=== PATIENT | female | born 1975 | race Caucasian/White ===

== ENCOUNTER 2023-05-14 12:43 | Emergency (ER) | payer OTHER ==
[2023-05-14] MEDS ORDERED: methylPREDNISolone Sodium Succinate 125 MG/2 ML SDV IM ONE (13:43)
[2023-05-14] MEDS ORDERED: Famotidine 20 MG Tab PO ONE (13:44)
[2023-05-14] MEDS ORDERED: hydrOXYzine HCl 25 MG Tab PO ONE (13:44)
== END 2023-05-14 14:23 | disposition home or self-care (01) ==
LOC: JD.ED 12:43
DX: L20.89 Other atopic dermatitis (principal)
CPT/HCPCS: 96372; 99282; A9270; J2930

== ENCOUNTER 2024-06-19 12:33 | Emergency (ER) | payer OTHER ==
[2024-06-19] MEDS ORDERED: Sodium Chloride 0.9% 10 ML Syringe FLUSH PRN (13:04)
[2024-06-19 13:43] LABS: BASOPHILS PERCENT AUTO 0.5 % (0.0-1.0); EOSINOPHILS ABSOLUTE AUTO 0.1 K/mm3 (0.0-0.4); EOSINOPHILS PERCENT AUTO 5.7 % (0.0-6.0); HEMOGLOBIN 13.1 gm/dl (12.0-16.0); IMMATURE GRAN ABSOLUTE AUTO 0.01 K/mm3 (0.00-0.05); IMMATURE GRAN PERCENT AUTO 0.5 % (0.0-0.4); LYMPHOCYTES ABSOLUTE AUTO 0.6 K/mm3 (1.0-4.8); LYMPHOCYTES PERCENT AUTO 27.8 % (24.0-44.0); MEAN CORPUSCULAR HEMOGLOBIN 31.3 pg (28.0-32.0); MEAN CORPUSCULAR HGB CONC 34.5 g/dl (32.0-36.0); MEAN CORPUSCULAR VOLUME 90.9 fl (83.0-99.0); MEAN PLATELET VOLUME 10.3 fl (9.4-12.3); MONOCYTES ABSOLUTE AUTO 0.3 K/mm3 (0.0-0.8); MONOCYTES PERCENT AUTO 12.3 % (0.0-8.0); NEUTROPHILS ABSOLUTE AUTO 1.1 K/mm3 (1.8-7.7); NEUTROPHILS PERCENT AUTO 53.2 % (41.0-71.0); PLATELET COUNT,PLT 58 K/mm3 (150-400); RED BLOOD CELL COUNT 4.18 M/mm3 (4.10-5.30)
[2024-06-19] MEDS: Sodium Chloride 0.9% 1,000 ML IV ONE ×2 (13:45→16:02)
[2024-06-19 13:46] LABS: WHITE BLOOD CELL COUNT,WBC 2.12 K/mm3 (3.9-11.3)
[2024-06-19 14:27] LABS: A/G RATIO 0.9 (1-2); ALBUMIN 3.1 g/dl (3.4-5.0); ANION GAP 14.1 (5-15); BILIRUBIN TOTAL 0.6 mg/dL (0.2-1.0); BUN/CREATININE RATIO 14.4 (14-18); CREATININE 0.9 mg/dL (0.55-1.02); EST CRCL DRUG DOSING (CG) 62.55 mL/min; MAGNESIUM 1.6 mg/dL (1.8-2.4); POTASSIUM,K 4.1 mEq/L (3.5-5.1); PROTEIN TOTAL,TP 6.5 g/dl (6.4-8.2); TSH 0.051 uIU/mL (0.358-3.74)
[2024-06-19 14:45] LABS: SLIDE REVIEW ABNORMAL SMEAR
[2024-06-19 14:50] LABS: T4 FREE 0.97 ng/dL (0.76-1.46)
[2024-06-19] MEDS: Cefepime 2 GM in Sodium Chloride 0.9% 50 ML IV ONE (16:02)
[2024-06-19] MEDS: LORazepam 1 MG Tab PO ONE (16:11)
[2024-06-19 16:13] LABS: APPEARANCE,URINE CLOUDY (Clear); BILIRUBIN,URINE NEGATIVE (Negative); COLOR,URINE YELLOW (Yellow); GLUCOSE,URINE NEGATIVE (Negative); KETONES,URINE 1+ (Negative); LEUKOCYTE ESTERASE,URINE NEGATIVE (Negative); NITRITE,URINE NEGATIVE (Negative); OCCULT BLOOD,URINE NEGATIVE (Negative); PROTEIN,URINE 1+ (Negative)
[2024-06-19 16:21] LABS: BACTERIA,URINE MODERATE /hpf (FEW); MUCUS,URINE MODERATE /hpf (FEW); RBC,URINE 0-5 /hpf (0-5); SQUAMOUS EPITHELIAL CELLS,UR 0-5 /hpf (0-5); WBC,URINE 0-5 /hpf (0-5)
== END 2024-06-19 16:40 ==
LOC: JD.ED 12:33
DX: D72.819 Decreased white blood cell count, unspecified (principal); E83.42 Hypomagnesemia; D69.6 Thrombocytopenia, unspecified; R91.8 Other nonspecific abnormal finding of lung field; E78.00 Pure hypercholesterolemia, unspecified; Z79.899 Other long term (current) drug therapy
CPT/HCPCS: 36415; 71045; 80053; 81001; 83605; 83735; 84439; 84443; 84484; 85025; 87040; 93005; 96361; 96365; 99285; A9270; J0692; J3490; J7030; 93010

== ENCOUNTER 2024-07-20 08:04 | Emergency (ER) | payer OTHER | END 2024-07-20 10:00 | disposition home or self-care (01) | LOC: JD.ED 08:04 | DX: R07.81 Pleurodynia (principal); E78.00 Pure hypercholesterolemia, unspecified; Z90.12 Acquired absence of left breast and nipple; Z79.899 Other long term (current) drug therapy | CPT/HCPCS: 71100-26-RT; 71100-RT; 99283; 99284 ==

== ENCOUNTER 2024-08-08 16:41 | Inpatient (IN) | payer OTHER ==
[2024-08-08] MEDS ORDERED: Sodium Chloride 0.9% 10 ML Syringe FLUSH PRN (17:19)
[2024-08-08] MEDS: Sodium Chloride 0.9% 1,000 ML IV SCH (17:28)
[2024-08-08 18:21] LABS: HEMATOCRIT 23.3 % (37.0-47.0); HEMOGLOBIN 7.5 gm/dl (12.0-16.0); IMMATURE GRAN ABSOLUTE AUTO 0.12 K/mm3 (0.00-0.05); IMMATURE GRAN PERCENT AUTO 3.8 % (0.0-0.4); LYMPHOCYTES ABSOLUTE AUTO 0.2 K/mm3 (1.0-4.8); MEAN CORPUSCULAR HEMOGLOBIN 32.1 pg (28.0-32.0); MEAN CORPUSCULAR HGB CONC 32.2 g/dl (32.0-36.0); MEAN CORPUSCULAR VOLUME 99.6 fl (83.0-99.0); MEAN PLATELET VOLUME 11.5 fl (9.4-12.3); MONOCYTES ABSOLUTE AUTO 0.1 K/mm3 (0.0-0.8); MONOCYTES PERCENT AUTO 1.6 % (0.0-8.0); NEUTROPHILS ABSOLUTE AUTO 2.7 K/mm3 (1.8-7.7); NEUTROPHILS PERCENT AUTO 87.6 % (41.0-71.0); PLATELET COUNT,PLT 60 K/mm3 (150-400); RED BLOOD CELL COUNT 2.34 M/mm3 (4.10-5.30); WHITE BLOOD CELL COUNT,WBC 3.13 K/mm3 (3.9-11.3)
[2024-08-08] MEDS: Sodium Chloride 0.9% 500 ML ONE (18:34)
[2024-08-08 18:45] LABS: A/G RATIO 0.6 (1-2); ALBUMIN 1.9 g/dl (3.4-5.0); ANION GAP 12.7 (5-15); BILIRUBIN TOTAL 0.7 mg/dL (0.2-1.0); BUN/CREATININE RATIO 17.9 (14-18); CALCIUM 8.5 mg/dL (8.5-10.1); CREATININE 1.4 mg/dL (0.55-1.02); EST CRCL DRUG DOSING (CG) 39.77 mL/min; MAGNESIUM 1.1 mg/dL (1.8-2.4); POTASSIUM,K 3.7 mEq/L (3.5-5.1); PROTEIN TOTAL,TP 4.9 g/dl (6.4-8.2)
[2024-08-08] MEDS: HYDROmorphone 1 MG/ML Syringe IVPUSH ONE ×2 (19:07→22:54)
[2024-08-08] MEDS: Sodium Chloride 0.9% 1,000 ML IV ONE (19:38)
[2024-08-08] MEDS: Magnesium Sulfate/Water Premix 2 GM/50 ML BAG IV ONE (20:41)
[2024-08-08] MEDS: Sodium Chloride 0.9% 250 ML IV SCH (21:15)
[2024-08-09] MEDS: Cefepime 2 GM in Sodium Chloride 0.9% 50 ML IV ONE (02:29)
[2024-08-09] MEDS: Ketorolac 15 MG/ML SDV IVPUSH ONE (02:45)
[2024-08-09 03:18] LABS: APPEARANCE,URINE CLOUDY (Clear); BILIRUBIN,URINE 1+ (Negative); COLOR,URINE DARK YELLOW (Yellow); GLUCOSE,URINE NEGATIVE (Negative); KETONES,URINE TRACE (Negative); LEUKOCYTE ESTERASE,URINE NEGATIVE (Negative); NITRITE,URINE NEGATIVE (Negative); OCCULT BLOOD,URINE TRACE-INTACT (Negative); PH,URINE 5.5 (5.0-8.0); PROTEIN,URINE 3+ (Negative)
[2024-08-09 03:26] LABS: EPITHELIAL CELLS,URINE 0-5 /hpf (0-5); RBC,URINE 0-5 /hpf (0-5); WBC,URINE 0-5 /hpf (0-5)
[2024-08-09 03:27] LABS: AMORPHOUS SEDIMENT,URINE MODERATE /hpf (NOT SEEN); BACTERIA,URINE MODERATE /hpf (FEW); MUCUS,URINE NOT SEEN /hpf (FEW)
[2024-08-09] MEDS: Sodium Chloride 0.9% 100 ML IV SCH (03:56)
[2024-08-09] MEDS: Iopamidol 755 Mg/ML 100 ML Bottle IVPUSH ONE (03:56)
[2024-08-09] MEDS: Furosemide 40 MG/4 ML VIAL IVPUSH ONE (06:15)
[2024-08-09] MEDS ORDERED: Cefepime 2 GM in Sodium Chloride 0.9% 50 ML IV SCH ×2 (08:00→14:00)
[2024-08-09] MEDS: Morphine 2 MG/ML SYRINGE IVPUSH PRN (09:47)
[2024-08-09] MEDS: Ondansetron 4 MG/2 ML SDV IV PRN (09:53)
[2024-08-09] MEDS: Azithromycin 500 MG in Sodium Chloride 0.9% 250 ML IV SCH (09:53)
[2024-08-09] MEDS: Midodrine 5 MG Tab PO SCH (10:38)
[2024-08-09] MEDS: oxyCODONE 5 MG Tab PO PRN (12:17)
[2024-08-09] MEDS: Cefepime 2 GM Vial IVPUSH SCH (13:56)
[2024-08-09] MEDS ORDERED: hydrOXYzine HCl 25 MG Tab PO PRN (15:25)
[2024-08-09] MEDS: Acetaminophen 325 MG Tab PO PRN (16:30)
[2024-08-09 16:45] LABS: URIC ACID 7.8 mg/dL (2.6-6.0)
[2024-08-09] MEDS: Sodium Chloride 0.9% 500 ML IV SCH (18:11)
[2024-08-09] MEDS: Polyethylene Glycol 3350 Powder 17 GM Packet PO PRN (20:13)
[2024-08-09] MEDS: atorvaSTATin 20 MG Tab PO SCH (20:14)
[2024-08-09] MEDS: Sodium Chloride 0.9% 1,000 ML IV SCH (21:00)
[2024-08-10 06:31] LABS: BASOPHILS PERCENT AUTO 1.5 % (0.0-1.0); EOSINOPHILS ABSOLUTE AUTO 0.1 K/mm3 (0.0-0.4); EOSINOPHILS PERCENT AUTO 4.2 % (0.0-6.0); HEMATOCRIT 25.7 % (37.0-47.0); HEMOGLOBIN 8.5 gm/dl (12.0-16.0); IMMATURE GRAN ABSOLUTE AUTO 0.39 K/mm3 (0.00-0.05); IMMATURE GRAN PERCENT AUTO 14.8 % (0.0-0.4); LYMPHOCYTES ABSOLUTE AUTO 0.1 K/mm3 (1.0-4.8); LYMPHOCYTES PERCENT AUTO 5.3 % (24.0-44.0); MEAN CORPUSCULAR HEMOGLOBIN 29.3 pg (28.0-32.0); MEAN CORPUSCULAR HGB CONC 33.1 g/dl (32.0-36.0); MEAN CORPUSCULAR VOLUME 88.6 fl (83.0-99.0); MONOCYTES PERCENT AUTO 1.5 % (0.0-8.0); NEUTROPHILS ABSOLUTE AUTO 1.9 K/mm3 (1.8-7.7); NEUTROPHILS PERCENT AUTO 72.7 % (41.0-71.0); WHITE BLOOD CELL COUNT,WBC 2.64 K/mm3 (3.9-11.3)
[2024-08-10 07:01] LABS: A/G RATIO 0.5 (1-2); ALANINE AMINOTRANSFERASE,ALT 114 U/L (14-59); ALBUMIN 1.6 g/dl (3.4-5.0); ALKALINE PHOSPHATASE 168 U/L (46-116); ANION GAP 15.3 (5-15); ASPARTATE AMNIOTRANSFERASE,AST 406 U/L (15-37); BILIRUBIN TOTAL 1.2 mg/dL (0.2-1.0); BLOOD UREA NITROGEN,BUN 32 mg/dL (7-18); BUN/CREATININE RATIO 22.9 (14-18); CALCIUM 8.8 mg/dL (8.5-10.1); CARBON DIOXIDE,CO2 26 mEq/L (21-32); CHLORIDE,CL 103 mEq/L (98-107); CREATININE 1.4 mg/dL (0.55-1.02); EST CRCL DRUG DOSING (CG) 39.77 mL/min; ESTIMATED GFR 46 mL/min (>60); GLUCOSE RANDOM 77 mg/dL (70-99); POTASSIUM,K 3.3 mEq/L (3.5-5.1); SODIUM,NA 141 mEq/L (136-145)
[2024-08-10 07:11] LABS: PLATELET COUNT,PLT 22 K/mm3 (150-400)
[2024-08-10 07:19] LABS: C-REACTIVE PROTEIN > 25.00 mg/dL (<0.30)
[2024-08-10 08:11] LABS: SLIDE REVIEW ABNORMAL SMEAR
[2024-08-10] MEDS: Sodium Chloride 0.9% 1,000 ML IV SCH (08:11)
[2024-08-10] MEDS: DULoxetine 30 MG Cap PO SCH (08:12)
[2024-08-10] MEDS: Calcium Carbonate 500 MG Tab.Chew PO PRN (08:14)
[2024-08-10] MEDS: Potassium Chloride 20 MEQ Tab.ER PO ONE (09:24)
[2024-08-10] MEDS: Midodrine 5 MG Tab PO SCH (18:50)
[2024-08-10] MEDS: Baclofen 10 MG Tab PO PRN (19:51)
[2024-08-11] MEDS: Melatonin 3 MG Tab PO PRN (01:25)
[2024-08-11 04:34] LABS: BASOPHILS PERCENT AUTO 0.4 % (0.0-1.0); EOSINOPHILS ABSOLUTE AUTO 0.1 K/mm3 (0.0-0.4); EOSINOPHILS PERCENT AUTO 3.5 % (0.0-6.0); HEMOGLOBIN 7.5 gm/dl (12.0-16.0); IMMATURE GRAN ABSOLUTE AUTO 0.05 K/mm3 (0.00-0.05); LYMPHOCYTES ABSOLUTE AUTO 0.2 K/mm3 (1.0-4.8); MEAN CORPUSCULAR HEMOGLOBIN 29.2 pg (28.0-32.0); MEAN CORPUSCULAR HGB CONC 32.6 g/dl (32.0-36.0); MEAN CORPUSCULAR VOLUME 89.5 fl (83.0-99.0); MONOCYTES ABSOLUTE AUTO 0.1 K/mm3 (0.0-0.8); MONOCYTES PERCENT AUTO 3.1 % (0.0-8.0); NEUTROPHILS ABSOLUTE AUTO 2.1 K/mm3 (1.8-7.7); RED BLOOD CELL COUNT 2.57 M/mm3 (4.10-5.30); WHITE BLOOD CELL COUNT,WBC 2.56 K/mm3 (3.9-11.3)
[2024-08-11 04:58] LABS: A/G RATIO 0.4 (1-2); ALANINE AMINOTRANSFERASE,ALT 94 U/L (14-59); ALBUMIN 1.4 g/dl (3.4-5.0); ALKALINE PHOSPHATASE 233 U/L (46-116); ANION GAP 13.7 (5-15); ASPARTATE AMNIOTRANSFERASE,AST 268 U/L (15-37); BLOOD UREA NITROGEN,BUN 28 mg/dL (7-18); CALCIUM 10.4 mg/dL (8.5-10.1); CARBON DIOXIDE,CO2 25 mEq/L (21-32); CHLORIDE,CL 103 mEq/L (98-107); EST CRCL DRUG DOSING (CG) 55.68 mL/min; ESTIMATED GFR 69 mL/min (>60); GLUCOSE RANDOM 69 mg/dL (70-99); POTASSIUM,K 3.7 mEq/L (3.5-5.1); PROTEIN TOTAL,TP 4.7 g/dl (6.4-8.2); SODIUM,NA 138 mEq/L (136-145)
[2024-08-11 05:14] LABS: C-REACTIVE PROTEIN > 25.00 mg/dL (<0.30)
[2024-08-11 05:50] LABS: PLATELET COUNT,PLT 7 K/mm3 (150-400)
[2024-08-11] MEDS ORDERED: Naloxone 0.4 MG/ML SDV IVPUSH PRN (07:42)
[2024-08-11 08:40] LABS: SLIDE REVIEW ABNORMAL SMEAR
[2024-08-11] MEDS: Cefepime 2 GM Vial IVPUSH SCH (09:08)
[2024-08-11] MEDS: Calcitonin (Salmon) 200 Units/ML 2 ML MDV SUBCUT ONE (09:15)
[2024-08-11] MEDS: Polyethylene Glycol 3350 Powder 17 GM Packet PO SCH (11:45)
[2024-08-11] MEDS: Metoprolol Tartrate 5 MG/5 ML SDV IVPUSH ONE (12:36)
[2024-08-11] MEDS: Metoprolol Tartrate 5 MG in Sodium Chloride 0.9% 50 ML IV ONE (12:43)
[2024-08-11] MEDS ORDERED: Sodium Chloride 0.9% 250 ML IV SCH ×2 (15:15→22:30)
[2024-08-11 19:16] LABS: BASOPHILS PERCENT AUTO 0.4 % (0.0-1.0); EOSINOPHILS PERCENT AUTO 1.8 % (0.0-6.0); IMMATURE GRAN ABSOLUTE AUTO 0.05 K/mm3 (0.00-0.05); IMMATURE GRAN PERCENT AUTO 2.2 % (0.0-0.4); LYMPHOCYTES ABSOLUTE AUTO 0.2 K/mm3 (1.0-4.8); LYMPHOCYTES PERCENT AUTO 9.7 % (24.0-44.0); MEAN CORPUSCULAR HEMOGLOBIN 30.5 pg (28.0-32.0); MEAN CORPUSCULAR HGB CONC 34.2 g/dl (32.0-36.0); MEAN CORPUSCULAR VOLUME 89.2 fl (83.0-99.0); MEAN PLATELET VOLUME 9.8 fl (9.4-12.3); MONOCYTES ABSOLUTE AUTO 0.1 K/mm3 (0.0-0.8); MONOCYTES PERCENT AUTO 3.5 % (0.0-8.0); NEUTROPHILS ABSOLUTE AUTO 1.9 K/mm3 (1.8-7.7); NEUTROPHILS PERCENT AUTO 82.4 % (41.0-71.0); RED BLOOD CELL COUNT 2.13 M/mm3 (4.10-5.30)
[2024-08-11 19:19] LABS: HEMOGLOBIN 6.5 gm/dl (12.0-16.0); WHITE BLOOD CELL COUNT,WBC 2.27 K/mm3 (3.9-11.3)
[2024-08-11 19:20] LABS: PLATELET COUNT,PLT 23 K/mm3 (150-400)
[2024-08-11] MEDS: Morphine 2 MG/ML SYRINGE IVPUSH PRN (20:14)
[2024-08-11 23:36] LABS: SLIDE REVIEW ABNORMAL SMEAR
[2024-08-12 04:33] LABS: BASOPHILS PERCENT AUTO 0.4 % (0.0-1.0); EOSINOPHILS ABSOLUTE AUTO 0.1 K/mm3 (0.0-0.4); EOSINOPHILS PERCENT AUTO 2.6 % (0.0-6.0); HEMATOCRIT 22.7 % (37.0-47.0); HEMOGLOBIN 7.7 gm/dl (12.0-16.0); IMMATURE GRAN PERCENT AUTO 3.7 % (0.0-0.4); LYMPHOCYTES ABSOLUTE AUTO 0.3 K/mm3 (1.0-4.8); LYMPHOCYTES PERCENT AUTO 11.4 % (24.0-44.0); MEAN CORPUSCULAR HEMOGLOBIN 30.1 pg (28.0-32.0); MEAN CORPUSCULAR HGB CONC 33.9 g/dl (32.0-36.0); MEAN CORPUSCULAR VOLUME 88.7 fl (83.0-99.0); MEAN PLATELET VOLUME 9.9 fl (9.4-12.3); MONOCYTES ABSOLUTE AUTO 0.1 K/mm3 (0.0-0.8); MONOCYTES PERCENT AUTO 3.7 % (0.0-8.0); NEUTROPHILS ABSOLUTE AUTO 2.1 K/mm3 (1.8-7.7); NEUTROPHILS PERCENT AUTO 78.2 % (41.0-71.0); RED BLOOD CELL COUNT 2.56 M/mm3 (4.10-5.30); WHITE BLOOD CELL COUNT,WBC 2.71 K/mm3 (3.9-11.3)
[2024-08-12 04:58] LABS: A/G RATIO 0.4 (1-2); ALBUMIN 1.5 g/dl (3.4-5.0); ANION GAP 12.5 (5-15); BILIRUBIN TOTAL 1.4 mg/dL (0.2-1.0); BUN/CREATININE RATIO 34.3 (14-18); CALCIUM 9.2 mg/dL (8.5-10.1); CREATININE 0.7 mg/dL (0.55-1.02); EST CRCL DRUG DOSING (CG) 79.54 mL/min; POTASSIUM,K 3.5 mEq/L (3.5-5.1); PROTEIN TOTAL,TP 4.9 g/dl (6.4-8.2)
[2024-08-12 05:23] LABS: PLATELET COUNT,PLT 18 K/mm3 (150-400)
[2024-08-12 05:30] LABS: SLIDE REVIEW ABNORMAL SMEAR
[2024-08-12 17:37] LABS: HEMATOCRIT 21.4 % (37.0-47.0); MEAN CORPUSCULAR HGB CONC 33.2 g/dl (32.0-36.0); MEAN CORPUSCULAR VOLUME 90.3 fl (83.0-99.0); RED BLOOD CELL COUNT 2.37 M/mm3 (4.10-5.30)
[2024-08-12 17:42] LABS: HEMOGLOBIN 7.1 gm/dl (12.0-16.0); PLATELET COUNT,PLT 10 K/mm3 (150-400); WHITE BLOOD CELL COUNT,WBC 2.09 K/mm3 (3.9-11.3)
[2024-08-12] MEDS: Pantoprazole 40 MG Tab.CR PO SCH (18:21)
[2024-08-13 05:40] LABS: BASOPHILS PERCENT AUTO 0.5 % (0.0-1.0); EOSINOPHILS ABSOLUTE AUTO 0.1 K/mm3 (0.0-0.4); EOSINOPHILS PERCENT AUTO 4.1 % (0.0-6.0); HEMATOCRIT 22.4 % (37.0-47.0); HEMOGLOBIN 7.5 gm/dl (12.0-16.0); IMMATURE GRAN ABSOLUTE AUTO 0.04 K/mm3 (0.00-0.05); LYMPHOCYTES ABSOLUTE AUTO 0.3 K/mm3 (1.0-4.8); LYMPHOCYTES PERCENT AUTO 15.7 % (24.0-44.0); MEAN CORPUSCULAR HEMOGLOBIN 30.4 pg (28.0-32.0); MEAN CORPUSCULAR HGB CONC 33.5 g/dl (32.0-36.0); MEAN CORPUSCULAR VOLUME 90.7 fl (83.0-99.0); MONOCYTES ABSOLUTE AUTO 0.1 K/mm3 (0.0-0.8); MONOCYTES PERCENT AUTO 5.6 % (0.0-8.0); NEUTROPHILS ABSOLUTE AUTO 1.4 K/mm3 (1.8-7.7); NEUTROPHILS PERCENT AUTO 72.1 % (41.0-71.0); RED BLOOD CELL COUNT 2.47 M/mm3 (4.10-5.30)
[2024-08-13 05:44] LABS: PLATELET COUNT,PLT 10 K/mm3 (150-400); WHITE BLOOD CELL COUNT,WBC 1.97 K/mm3 (3.9-11.3)
[2024-08-13 06:01] LABS: A/G RATIO 0.4 (1-2); ALBUMIN 1.6 g/dl (3.4-5.0); ANION GAP 11.1 (5-15); BILIRUBIN TOTAL 1.3 mg/dL (0.2-1.0); BUN/CREATININE RATIO 25.7 (14-18); C-REACTIVE PROTEIN 15.52 mg/dL (<0.30); CREATININE 0.7 mg/dL (0.55-1.02); EST CRCL DRUG DOSING (CG) 79.54 mL/min; POTASSIUM,K 3.1 mEq/L (3.5-5.1); PROTEIN TOTAL,TP 5.2 g/dl (6.4-8.2)
[2024-08-13 06:08] LABS: SLIDE REVIEW ABNORMAL SMEAR
[2024-08-13 06:09] LABS: CALCIUM 11.5 mg/dL (8.5-10.1)
[2024-08-13] MEDS: Sodium Chloride 0.9% 1,000 ML IV SCH (07:28)
[2024-08-13] MEDS: Calcitonin (Salmon) 200 Units/ML 2 ML MDV SUBCUT ONE ×2 (08:22→21:34)
[2024-08-13] MEDS: Potassium Chloride 20 MEQ Tab.ER PO ONE (08:22)
[2024-08-13] MEDS: Metoclopramide 10 MG/2 ML SDV IVPUSH PRN (11:46)
[2024-08-13] MEDS: Magnesium Sulfate/Water Premix 4 GM in Premix Bag 1 BAG IV ONE (11:47)
[2024-08-13] MEDS: Sodium Chloride 0.9% 250 ML IV SCH (13:40)
[2024-08-13 17:54] LABS: HEMATOCRIT 22.4 % (37.0-47.0); HEMOGLOBIN 7.5 gm/dl (12.0-16.0); MEAN CORPUSCULAR HEMOGLOBIN 30.1 pg (28.0-32.0); MEAN CORPUSCULAR HGB CONC 33.5 g/dl (32.0-36.0); MEAN PLATELET VOLUME 10.3 fl (9.4-12.3); RED BLOOD CELL COUNT 2.49 M/mm3 (4.10-5.30)
[2024-08-13 18:10] LABS: PLATELET COUNT,PLT 23 K/mm3 (150-400)
[2024-08-14] MEDS ORDERED: Metoprolol Tartrate 5 MG/5 ML SDV IVPUSH PRN (00:40)
[2024-08-14 05:29] LABS: BASOPHILS PERCENT AUTO 1.2 % (0.0-1.0); EOSINOPHILS ABSOLUTE AUTO 0.1 K/mm3 (0.0-0.4); EOSINOPHILS PERCENT AUTO 4.1 % (0.0-6.0); HEMATOCRIT 20.8 % (37.0-47.0); IMMATURE GRAN ABSOLUTE AUTO 0.01 K/mm3 (0.00-0.05); IMMATURE GRAN PERCENT AUTO 0.6 % (0.0-0.4); LYMPHOCYTES ABSOLUTE AUTO 0.3 K/mm3 (1.0-4.8); MEAN CORPUSCULAR HEMOGLOBIN 30.6 pg (28.0-32.0); MEAN CORPUSCULAR HGB CONC 34.1 g/dl (32.0-36.0); MEAN CORPUSCULAR VOLUME 89.7 fl (83.0-99.0); MEAN PLATELET VOLUME 11.2 fl (9.4-12.3); MONOCYTES ABSOLUTE AUTO 0.2 K/mm3 (0.0-0.8); MONOCYTES PERCENT AUTO 8.8 % (0.0-8.0); NEUTROPHILS ABSOLUTE AUTO 1.1 K/mm3 (1.8-7.7); NEUTROPHILS PERCENT AUTO 65.3 % (41.0-71.0); NRBC ABSOLUTE 0.02 (0.00-0.02); NRBC PERCENT 1.2 % (0.0-0.2); PLATELET COUNT,PLT 33 K/mm3 (150-400); RED BLOOD CELL COUNT 2.32 M/mm3 (4.10-5.30)
[2024-08-14 05:36] LABS: HEMOGLOBIN 7.1 gm/dl (12.0-16.0)
[2024-08-14 06:02] LABS: A/G RATIO 0.5 (1-2); ALBUMIN 1.8 g/dl (3.4-5.0); ANION GAP 11.1 (5-15); BILIRUBIN TOTAL 1.4 mg/dL (0.2-1.0); BUN/CREATININE RATIO 26.7 (14-18); CALCIUM 11.3 mg/dL (8.5-10.1); CREATININE 0.6 mg/dL (0.55-1.02); EST CRCL DRUG DOSING (CG) 92.79 mL/min; MAGNESIUM 1.1 mg/dL (1.8-2.4); POTASSIUM,K 3.1 mEq/L (3.5-5.1); PROTEIN TOTAL,TP 5.4 g/dl (6.4-8.2)
[2024-08-14 06:12] LABS: SLIDE REVIEW ABNORMAL SMEAR
[2024-08-14] MEDS ORDERED: Zoledronic Acid 4 MG in Sodium Chloride 0.9% 100 ML IV ONE (08:00)
[2024-08-14] MEDS: Potassium Chloride 20 MEQ Tab.ER PO SCH (08:25)
[2024-08-14] MEDS: Zoledronic Acid 4 MG in Sodium Chloride 0.9% 100 ML IV ONE (10:20)
[2024-08-14] MEDS: Magnesium Sulfate/Water Premix 4 GM in Premix Bag 1 BAG IV ONE (10:20)
[2024-08-14] MEDS ORDERED: Polyethylene Glycol 3350 Powder 17 GM Packet PO PRN (12:38)
[2024-08-14 13:57] LABS: C-REACTIVE PROTEIN 13.68 mg/dL (<0.30)
[2024-08-14 15:04] LABS: HEMATOCRIT 20.3 % (37.0-47.0); MEAN CORPUSCULAR HEMOGLOBIN 30.5 pg (28.0-32.0); MEAN CORPUSCULAR HGB CONC 33.5 g/dl (32.0-36.0); MEAN PLATELET VOLUME 10.9 fl (9.4-12.3); NRBC ABSOLUTE 0.03 (0.00-0.02); NRBC PERCENT 1.9 % (0.0-0.2); PLATELET COUNT,PLT 46 K/mm3 (150-400); RED BLOOD CELL COUNT 2.23 M/mm3 (4.10-5.30)
[2024-08-14 15:19] LABS: WHITE BLOOD CELL COUNT,WBC 1.55 K/mm3 (3.9-11.3)
[2024-08-14 15:20] LABS: HEMOGLOBIN 6.8 gm/dl (12.0-16.0)
[2024-08-14 15:27] LABS: CALCIUM 12.2 mg/dL (8.5-10.1)
[2024-08-14] MEDS: Sodium Chloride 0.9% 250 ML IV SCH (16:58)
[2024-08-15 05:37] LABS: BASOPHILS PERCENT AUTO 1.3 % (0.0-1.0); EOSINOPHILS ABSOLUTE AUTO 0.1 K/mm3 (0.0-0.4); EOSINOPHILS PERCENT AUTO 4.7 % (0.0-6.0); HEMATOCRIT 25.4 % (37.0-47.0); IMMATURE GRAN ABSOLUTE AUTO 0.02 K/mm3 (0.00-0.05); IMMATURE GRAN PERCENT AUTO 1.3 % (0.0-0.4); LYMPHOCYTES ABSOLUTE AUTO 0.3 K/mm3 (1.0-4.8); LYMPHOCYTES PERCENT AUTO 16.7 % (24.0-44.0); MEAN CORPUSCULAR HEMOGLOBIN 30.4 pg (28.0-32.0); MEAN CORPUSCULAR HGB CONC 33.9 g/dl (32.0-36.0); MEAN CORPUSCULAR VOLUME 89.8 fl (83.0-99.0); MONOCYTES ABSOLUTE AUTO 0.2 K/mm3 (0.0-0.8); MONOCYTES PERCENT AUTO 12.7 % (0.0-8.0); NEUTROPHILS PERCENT AUTO 63.3 % (41.0-71.0); NRBC ABSOLUTE 0.04 (0.00-0.02); NRBC PERCENT 2.7 % (0.0-0.2); PLATELET COUNT,PLT 39 K/mm3 (150-400); RED BLOOD CELL COUNT 2.83 M/mm3 (4.10-5.30)
[2024-08-15 05:41] LABS: HEMOGLOBIN 8.6 gm/dl (12.0-16.0)
[2024-08-15 06:25] LABS: SLIDE REVIEW ABNORMAL SMEAR
[2024-08-15 06:26] LABS: A/G RATIO 0.5 (1-2); ALBUMIN 1.8 g/dl (3.4-5.0); ANION GAP 11.3 (5-15); BILIRUBIN TOTAL 1.5 mg/dL (0.2-1.0); BUN/CREATININE RATIO 26.3 (14-18); CREATININE 0.8 mg/dL (0.55-1.02); EST CRCL DRUG DOSING (CG) 69.59 mL/min; POTASSIUM,K 3.3 mEq/L (3.5-5.1); PROTEIN TOTAL,TP 5.5 g/dl (6.4-8.2)
[2024-08-15 06:38] LABS: CALCIUM 13.2 mg/dL (8.5-10.1)
[2024-08-15] MEDS ORDERED: hydrALAZINE 20 MG/ML SDV IVPUSH PRN (10:17)
[2024-08-15] MEDS ORDERED: Labetalol 100 MG/20 ML MDV IVPUSH PRN (10:17)
[2024-08-15] MEDS ORDERED: Sodium Ferric Gluconate Cmplex 250 MG in Sodium Chloride 0.9% 100 ML IV ONE (11:00)
[2024-08-15] MEDS: Morphine 15 MG Tab.ER PO SCH ×2 (11:41→21:56)
[2024-08-15] MEDS: Metoprolol Succinate 50 MG Tab.ER PO SCH (11:41)
[2024-08-15] MEDS: Potassium Chloride 20 MEQ Tab.ER PO ONE (11:41)
[2024-08-15] MEDS: Sodium Ferric Gluconate Cmplex 250 MG in Sodium Chloride 0.9% 100 ML IV ONE (11:44)
[2024-08-15] MEDS ORDERED: Calcitonin (Salmon) 200 Units/ML 2 ML MDV SUBCUT ONE (11:51)
[2024-08-15] MEDS: Furosemide 40 MG/4 ML VIAL IVPUSH ONE (13:06)
[2024-08-15] MEDS: Iron Polysaccharides Complex 150 MG Cap PO SCH (18:25)
[2024-08-16 06:24] LABS: BASOPHILS PERCENT AUTO 1.7 % (0.0-1.0); EOSINOPHILS ABSOLUTE AUTO 0.1 K/mm3 (0.0-0.4); EOSINOPHILS PERCENT AUTO 5.8 % (0.0-6.0); HEMATOCRIT 23.5 % (37.0-47.0); HEMOGLOBIN 7.8 gm/dl (12.0-16.0); IMMATURE GRAN ABSOLUTE AUTO 0.07 K/mm3 (0.00-0.05); IMMATURE GRAN PERCENT AUTO 5.8 % (0.0-0.4); LYMPHOCYTES ABSOLUTE AUTO 0.2 K/mm3 (1.0-4.8); LYMPHOCYTES PERCENT AUTO 17.4 % (24.0-44.0); MEAN CORPUSCULAR HEMOGLOBIN 29.8 pg (28.0-32.0); MEAN CORPUSCULAR HGB CONC 33.2 g/dl (32.0-36.0); MEAN CORPUSCULAR VOLUME 89.7 fl (83.0-99.0); MEAN PLATELET VOLUME 10.8 fl (9.4-12.3); MONOCYTES ABSOLUTE AUTO 0.2 K/mm3 (0.0-0.8); MONOCYTES PERCENT AUTO 18.2 % (0.0-8.0); NEUTROPHILS ABSOLUTE AUTO 0.6 K/mm3 (1.8-7.7); NEUTROPHILS PERCENT AUTO 51.1 % (41.0-71.0); NRBC ABSOLUTE 0.08 (0.00-0.02); NRBC PERCENT 6.6 % (0.0-0.2); PLATELET COUNT,PLT 26 K/mm3 (150-400); RED BLOOD CELL COUNT 2.62 M/mm3 (4.10-5.30)
[2024-08-16 06:34] LABS: WHITE BLOOD CELL COUNT,WBC 1.21 K/mm3 (3.9-11.3)
[2024-08-16 06:42] LABS: INTACT PTH 5 pg/mL (15-65)
[2024-08-16 06:57] LABS: A/G RATIO 0.5 (1-2); ALBUMIN 1.7 g/dl (3.4-5.0); ANION GAP 9.7 (5-15); BILIRUBIN TOTAL 1.4 mg/dL (0.2-1.0); C-REACTIVE PROTEIN 16.36 mg/dL (<0.30); CALCIUM 12.2 mg/dL (8.5-10.1); CREATININE 0.8 mg/dL (0.55-1.02); EST CRCL DRUG DOSING (CG) 69.59 mL/min; MAGNESIUM 1.3 mg/dL (1.8-2.4); PHOSPHORUS 2.8 mg/dL (2.6-4.7); POTASSIUM,K 3.7 mEq/L (3.5-5.1); PROTEIN TOTAL,TP 5.3 g/dl (6.4-8.2)
[2024-08-16 08:47] LABS: IONIZED CA@PH7.4 1.73 mmol/L (1.09-1.30); IONIZED CALCIUM 1.6 mmol/L (1.09-1.30)
[2024-08-16 09:39] LABS: SLIDE REVIEW ABNORMAL SMEAR
[2024-08-16] MEDS: Magnesium Sulfate/Water Premix 4 GM in Premix Bag 1 BAG IV ONE (10:06)
[2024-08-16] MEDS: Potassium Phosphates 30 MMOLE in Sodium Chloride 0.9% 500 ML IV SCH (11:23)
[2024-08-16] MEDS: Morphine 15 MG Tab PO ONE (12:43)
[2024-08-16] MEDS: Sennosides/Docusate Sodium 50-8.6 MG Tab PO PRN (14:24)
[2024-08-16] MEDS ORDERED: Sennosides/Docusate Sodium 50-8.6 MG Tab PO PRN (18:51)
[2024-08-16] MEDS ORDERED: Morphine 2 MG/ML SYRINGE IV PRN ×2 (18:51→19:01)
[2024-08-16] MEDS ORDERED: Ondansetron 4 MG/2 ML SDV IVPUSH PRN (18:51)
[2024-08-16] MEDS: Morphine 2 MG/ML SYRINGE IVPUSH ONE (20:26)
[2024-08-16] MEDS: Morphine 2 MG/ML SYRINGE ONE (20:30)
[2024-08-16] MEDS: Morphine 100 MG in Sodium Chloride 0.9% 90 ML IV SCH (20:59)
[2024-08-16] MEDS ORDERED: Morphine 15 MG Tab.ER PO SCH (21:00)
[2024-08-17] MEDS: LORazepam 2 MG/ML SDV IV PRN (13:27)
[2024-08-17] MEDS: Baclofen 10 MG Tab PO PRN (14:10)
[2024-08-17] MEDS: Morphine 50 MG in Sodium Chloride 0.9% 45 ML IV SCH (21:18)
[2024-08-19] MEDS: Morphine 100 MG in Sodium Chloride 0.9% 90 ML IV SCH (17:19)
== END 2024-08-20 00:51 | disposition expired | DRG 871 ==
LOC: JD.ED 16:41 → JD.ICU 08-09 07:43 → JD.MS 08-12 11:01
PROVIDERS: ADMIT Family Medicine; ATTEND Student in an Organized Health Care Education/Training Program
PROC: 30233N1 Transfusion of Nonautologous Red Blood Cells into Peripheral Vein, Percutaneous Approach (ICD-10-PCS; 2024-08-08)
PROC: 3E033XZ Introduction of Vasopressor into Peripheral Vein, Percutaneous Approach (ICD-10-PCS; 2024-08-09)
PROC: 3E03329 Introduction of Other Anti-infective into Peripheral Vein, Percutaneous Approach (ICD-10-PCS; 2024-08-09)
PROC: 30233R1 Transfusion of Nonautologous Platelets into Peripheral Vein, Percutaneous Approach (ICD-10-PCS; principal; 2024-08-11)
PROC: 30233N1 Transfusion of Nonautologous Red Blood Cells into Peripheral Vein, Percutaneous Approach (ICD-10-PCS; 2024-08-11)
PROC: 30233R1 Transfusion of Nonautologous Platelets into Peripheral Vein, Percutaneous Approach (ICD-10-PCS; 2024-08-13)
PROC: 30233R1 Transfusion of Nonautologous Platelets into Peripheral Vein, Percutaneous Approach (ICD-10-PCS; 2024-08-14)
PROC: 30233N1 Transfusion of Nonautologous Red Blood Cells into Peripheral Vein, Percutaneous Approach (ICD-10-PCS; 2024-08-14)
DX: A41.9 Sepsis, unspecified organism (principal); D61.810 Antineoplastic chemotherapy induced pancytopenia; R65.21 Severe sepsis with septic shock; J18.9 Pneumonia, unspecified organism; J96.21 Acute and chronic respiratory failure with hypoxia; C78.01 Secondary malignant neoplasm of right lung; C78.02 Secondary malignant neoplasm of left lung; C78.7 Secondary malignant neoplasm of liver and intrahepatic bile duct; D84.9 Immunodeficiency, unspecified; N17.9 Acute kidney failure, unspecified; Z66 Do not resuscitate; Z51.5 Encounter for palliative care; C50.919 Malignant neoplasm of unspecified site of unspecified female breast; F41.9 Anxiety disorder, unspecified; F32.A Depression, unspecified; E78.5 Hyperlipidemia, unspecified; K59.00 Constipation, unspecified; H54.7 Unspecified visual loss; E78.00 Pure hypercholesterolemia, unspecified; E83.42 Hypomagnesemia; R57.1 Hypovolemic shock; E86.0 Dehydration; T45.1X5A Adverse effect of antineoplastic and immunosuppressive drugs, initial encounter; D64.9 Anemia, unspecified; N18.2 Chronic kidney disease, stage 2 (mild); E83.39 Other disorders of phosphorus metabolism; D69.6 Thrombocytopenia, unspecified; E83.52 Hypercalcemia; E87.6 Hypokalemia; Z79.899 Other long term (current) drug therapy; Z90.10 Acquired absence of unspecified breast and nipple; Z87.891 Personal history of nicotine dependence
CPT/HCPCS: 36415; 36430; 70450; 70450-26; 71045; 71045-26; 71275; 71275-26; 80053; 80307; 81001; 82140; 82272; 82310; 82330; 82542; 82550; 82728; 83540; 83605; 83615; 83735; 83880; 83970; 84100; 84466; 84484; 84550; 85018; 85025; 85027; 85379; 86140; 86850; 86900; 86901; 86922; 87040; 87641; 93005; 93010; 94760; 94761; 94762; 96361; 96365; 96366; 96367; 96375; 96376; 97110-GP; 97116-GP; 97161-GP; 97530-GP; 99285-25; 99291; A9270-GY; C1758; J0456; J0630; J0692; J1171; J1446; J1885; J1940; J2060; J2270; J2272; J2405; J2765; J2916; J3475; J3489; J3490; J7030; J7040; J7050; P9016; P9034; Q9967